=== PATIENT | female | born 1965 | race Caucasian/White ===

== ENCOUNTER 2024-02-17 08:30 | Outpatient (CLI) | payer OTHER, SELFPAY | END 2024-02-17 08:31 | disposition home or self-care (01) | PROVIDERS: PCP Family Medicine; Visit Provider Family Medicine | DX: Z00.00 Encounter for general adult medical examination without abnormal findings (principal); R53.83 Other fatigue; E05.00 Thyrotoxicosis with diffuse goiter without thyrotoxic crisis or storm; R00.2 Palpitations; Z13.6 Encounter for screening for cardiovascular disorders | CPT/HCPCS: 80053; 80061; 84439; 84443; 84445; 84481 ==

== ENCOUNTER 2024-05-17 07:53 | Outpatient (CLI) | payer OTHER, SELFPAY ==
--- NOTE | 2024-05-17 08:15 | CRLHL7_ITS ---
For Patients: As a result of the Century Cures Act, medical imaging exams and procedure reports are released immediately into your electronic medical record. You may view this report before your referring provider. If you have questions, please contact your health care provider. BILATERAL SCREENING MAMMOGRAM WITH COMPUTER-AIDED DETECTION AND TOMOSYNTHESIS TECHNIQUE: CC and MLO views were obtained. These mammographic images have been obtained using full-field digital technique. These mammographic images were interpreted with the benefit of computer-aided detection. Breast Tomosynthesis was used in this interpretation. COMPARISON FILM: 01/21/22. FINDINGS: There are scattered areas of fibroglandular density. IMPRESSION: There is no radiographic evidence for malignancy. ASSESSMENT: BI-RADS Category 1: Negative RECOMMENDATION: Routine screening mammogram in 1 year. A lay language report of this examination will be provided to the patient. Chacho Camacho M.D. Diagnostic/Nuclear Medicine Radiologist [email or web address] FAINA/yaneth SP/Dictated by: Chacho Camacho MD @ 06/02/2024 10:36:00 AM (Electronically Signed)
== END 2024-05-17 07:54 | disposition home or self-care (01) ==
LOC: MAMMO 07:54
PROVIDERS: PCP Family Medicine; Visit Provider Family Medicine
DX: Z12.31 Encounter for screening mammogram for malignant neoplasm of breast (principal)
CPT/HCPCS: 77063; 77067

== ENCOUNTER 2024-07-28 14:15 | Outpatient (RCR) | payer OTHER, SELFPAY | END 2024-08-03 15:52 | disposition home or self-care (01) | PROVIDERS: PCP Family Medicine; Visit Provider Family Medicine | DX: M54.16 Radiculopathy, lumbar region (principal); Z51.89 Encounter for other specified aftercare | CPT/HCPCS: 97110; 97140; 97161 ==

== ENCOUNTER 2024-09-12 06:17 | Outpatient (CLI) | payer OTHER, SELFPAY ==
--- OUTSIDE RECORDS SUMMARY | 2024-09-12 06:39 | XMS_ITS | Clinical Summary ---
Author Organization [facility] Address [place], [place] [address] Care Team Providers Care Platform Software Engineer Name Role Phone Juliette Gabriel MD Primary Care Provider + Allergies Active Allergy Reactions Criticality Noted Date Comments Sulfa (Sulfonamide Antibiotics) Hives,Rash 07/25 Medications Medication Sig Dispensed Refills Start Date End Date Status methIMAzole (TAPAZOLE) 5 mg tablet Take 5 mg by mouth once daily. 07/03/2024 Active gabapentin (NEURONTIN) 300 mg capsule TAKE 1 CAPSULE BY MOUTH EVERY DAY AT BEDTIME 06/29/2024 Active predniSONE (DELTASONE) 10 mg tabletIndications:L umbar radiculopathy,Work related injury Take 2 Tablets (20 mg) by mouth two times daily with meals for 3 days, THEN 3 Tablets (30 mg) once daily with a meal for 3 days, THEN 2 Tablets (20 mg) once daily with a meal for 3 days, THEN 1 Tablet (10 mg) once daily with a meal for 3 days. 30 Tablet 08/17/2024 08/28/2024 Active Problems No known active problems Encounters Date Type Department Care Team Description 09/08/2024 4:15 PM CDT Ancillary Procedure [facility] [address] [place] [address] Arrived 09/08/2024 Travel 09/06/2024 Telephone [facility] [address] [place] [address] Emiliano Wayne MD Prior Authorization (PRIOR AUTH SENT TO [facility]? ) 08/31/2024 Telephone [facility] [address] [place] [address] Emiliano Wayne MD Form (Health Care Provider Report) 08/24/2024 Telephone [facility] [address] [place] [address] Pcp, No Form (questions) 08/17/2024 1:40 PM CDT Office Visit [facility] [address] [place] [address] Emiliano Wayne MD [facility] Med (Consult work comp back pain date of injury:05/04/[address] 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 ) 08/17/2024 Travel from Last 3 Months Social History Tobacco Use Types Packs/Day Years Used Date Smoking Tobacco: Never Smokeless Tobacco: Never Tobacco Cessation:Counseling Given: Not Answered Sex and Gender Information Value Date Recorded Sex Assigned at Not on file Gender Identity Not on file Sexual Orientation Not on file Obstetrics History Last Filed Vital Signs Vital Sign Reading Time Taken Comments Blood Pressure 117/81 08/17/2024 1:50 PM CDT Pulse 88 08/17/2024 1:50 PM CDT Temperature 36.8 ??C (98.2 ??F) 08/17/2024 1:50 PM CD T Respiratory Rate - - Oxygen Saturation 99% 08/17/2024 1:50 PM CDT Inhaled Oxygen Concentration - - Weight 82.7 kg (182 lb 6.4 oz) 08/17/2024 1:50 P M CDT Height 162.6 cm (5' 4) 08/17/2024 1:50 PM CDT Body Mass Index 31.31 08/17/2024 1:50 PM CDT Plan of Treatment Health Maintenance Due Date Last Done Comments Tdap 1978 Depression screening for age 12+ 1979 HIV for age 15-65 1982 Hepatitis C screening for ag e 18-79 1985 Tetanus booster 1987 Colonoscopy through age 75 2012 Lipids for age 45-75 2012 Mammogram for age 45-75 2012 Zoster (shingles) series for age 50+ (1 of 2) 2017 COVID-19 vaccine series ( season) 2024 Influenza for age 50-64 07/24/2024 BMI (ht and wt on same day) for age 18+ 08/17/2025 08/17/2024 Pap test for age 21-65 03/03/2027 , 03/03/2024 Pneumococcal series for age 6-64 Aged Out No longer eligible b ased on patient's age to complete this topic Procedures Procedure Name Priority Date/Time Associated Diagnosis Comments MR SPINE LUMBAR WO Routine 09/08/2024 4: 14 PM CDT Lumbar radiculopathy Work related injury HPV HIGH RISK Routine 03/03/2024 7:55 AM CDT from Last 3 Months or Most Recently Relevant to Health Maintenance Results * MR SPINE LUMBAR WO (09/08/2024 4:14 PM CDT) Anatomical Region Laterality Modality Spine, LUMBAR SPINE Magnetic Res onance 09/09/2024 12:0 2 PM CDT Narrative 09/09/2024 12:02 PM CDT For Patients: ??As a result of the Century Cures Act, medical imaging exams and procedure reports are released immediately into your electronic medical record. ??You may view this report before your referring provider. ??If you have questions, please contact your health care provider. Indication: Lumbar radiculopathy. Work related injury. Low back pain. Technique: Multiplanar, multisequence, MRI of the lumbar spine, obtained without contrast. Comparison: No relevant comparison studies available at this institution. Findings: The lumbar lordosis is preserved. No significant spondylolisthesis. ??Vertebral body heights are grossly maintained. No evidence of acute fracture or focal compression deformity. Bone marrow signal appears within normal limits. The conus medullaris terminates at approximately L2. No suspicious findings in the prevertebral and paraspinal soft tissues. Included SI joints are unremarkable. T12-L1 through L2-L3: No neural foraminal or spinal canal stenosis. L3-L4: Minimal disc bulge, mild facet arthropathy. No neural foraminal or spinal canal stenosis. L4-L5: Mild facet arthropathy. No neural foraminal or spinal canal stenosis. L5-S1: Right asymmetric facet arthropathy. No neural foraminal or spinal canal stenosis. Impression: 1. Normal spinal alignment. No acute osseous abnormality. 2. Minor spondylosis. No neural foraminal or spinal canal stenosis. Dictated by Kiara oHffman MD @ 09/09/2024 12:02:54 PM (Electronically Signed) Procedure Note Kiara Hoffman, - 09/09/2024 For Patients: As a result of the Cures Act, medical imagingexams and procedure reports are released immediately into your electronicmedical record. You may view this report before your referring provider.If you have questions, please contact your health care provider. Indication: Lumbar radiculopathy. Work related injury. Low back pain. Technique: Multiplanar, multisequence, MRI of the lumbar spine, obtained withoutcontrast. Comparison: No relevant comparison studies available at this institution. Findings: The lumbar lordosis is preserved. No significant spondylolisthesis.Vertebral body heights are grossly maintained. No evidence of acutefracture or focal compression deformity. Bone marrow signal appears withinnormal limits. The conus medullaris terminates at approximately L2. Nosuspicious findings in the prevertebral and paraspinal soft tissues.Included SI joints are unremarkable. T12-L1 through L2-L3: No neural foraminal or spinal canal stenosis. L3-L4: Minimal disc bulge, mild facet arthropathy. No neural foraminal orspinal canal stenosis. L4-L5: Mild facet arthropathy. No neural foraminal or spinal canalstenosis. L5-S1: Right asymmetric facet arthropathy. No neural foraminal or spinalcanal stenosis. Impression: 1. Normal spinal alignment. No acute osseous abnormality. 2. Minor spondylosis. No neural foraminal or spinal canal stenosis. Dictated by Kiara Hoffman MD @ 09/09/2024 12:02:54 PM (Electronically Signed) Emiliano Wayne MD MR * HPV HIGH RISK (03/03/2024 7:55 AM CDT) TYPE 16 Negative Negative 03/07/2024 2:02 PM CDT [facility]OR[facility] TYPE 18 Negative Negative 03/07/2024 2:02 PM CDT [facility] TRAL LABORATORY OTHER HIGH RISK TYPES Negative Negative 03/07/2024 2:02 PM CDT [facility] TRA LABORAT[facility] Other (Cervical/Vagina l) 03/03/2024 7:55 AM CDT 03/03/2024 4:18 PM CDT Narrative [facility] - 03/07/2024 2:02 PM CDT HPV types 16, 18, 31, 33, 35, 39, 45, 51, 52, 56, 58, 59, 66 and 68 DNA were undetectable or below the pre-set threshold. Methodology: Narciso Sarah 4800 HPV Test Juliette Gabriel MD MICROBIOLOGY [facility] [address] [place] [address], from Last 3 Months or Most Recently Relevant to Health Maintenance Care Teams Platform Software Engineer Relationship Specialty Start Date End Date Juliette Gabriel MD [address] [place] [address] PCP - General Family Practice 06/30/24
--- NOTE | 2024-09-12 08:06 | W.ANESCHARGE ---
Anesthesia Charges Start Date/Time Anesthesia Start Date: 09/12/24 Anesthesia Start Time: 07:32 Stop Date/Time Anesthesia Stop Date: 09/12/24 Anesthesia Stop Time: 08:01
--- NOTE | 2024-09-12 09:39 | W.ANESCHARGE ---
Anesthesia Charges Start Date/Time Anesthesia Start Date: 09/12/24 Anesthesia Start Time: 07:32 Stop Date/Time Anesthesia Stop Date: 09/12/24 Anesthesia Stop Time: 08:01
== END 2024-09-12 06:18 | disposition home or self-care (01) ==
LOC: OP CLINIC 06:17
PROVIDERS: PCP Family Medicine; Visit Provider Surgery
DX: Z12.11 Encounter for screening for malignant neoplasm of colon (principal); K57.30 Diverticulosis of large intestine without perforation or abscess without bleeding; Z86.0100 Personal history of colon polyps, unspecified
CPT/HCPCS: 00812; 45378; J2704

== ENCOUNTER 2024-10-05 16:01 | Outpatient (CLI) | payer OTHER, SELFPAY ==
--- OUTSIDE RECORDS SUMMARY | 2024-10-05 16:03 | XMS_ITS | Clinical Summary ---
Author Organization [facility] Address [place], [place] [address] Care Team Providers Care Manager Express Name Role Phone Juliette Gabriel MD Primary Care Provider + Allergies Active Allergy Reactions Criticality Noted Date Comments Sulfa (Sulfonamide Antibiotics) Hives,Rash 07/25 Medications Medication Sig Dispensed Refills Start Date End Date Status methIMAzole (TAPAZOLE) 5 mg tablet Take 5 mg by mouth once daily. 07/03/2024 Active gabapentin (NEURONTIN) 300 mg capsule TAKE 1 CAPSULE BY MOUTH EVERY DAY AT BEDTIME 06/29/2024 Active Active Problems No known active problems Encounters Date Type Department Care Team Description 09/15/2024 Telephone [facility] [address] [place] [address] Emiliano Wayne MD Results (MRI 09/08/24/) 09/08/2024 4:15 PM CDT Ancillary Procedure [facility] [address] [place] [address] 09/08/2024 Travel 09/06/2024 Telephone [facility] [address] [place] [address] Emiliano Wayne MD Prior Authorization (PRIOR AUTH SENT TO [facility]? ) 08/31/[address] [address] Emiliano Wayne MD Form (Health Care Provider Report) 08/24/2024 Telephone [facility] [address] [place] [address] Pcp, No Form (questions) 08/17/2024 1:40 PM CDT Office Visit [facility] [address] [place] [address] Emiliano Wayne MD [facility] (Consult work comp back pain date [...] 08/17/2024 1:50 PM CDT Plan of Treatment Upcoming Encounters Date Type Department Care Team (Late st Contact Info) Description 11/01/2024 11:20 AM REGISTERED NURSE MATERNITY Office Visit [facility] [address] [facility] [place] [address] Emiliano Wayne MD [address] [place] [address] Health Maintenance Due Date Last Done Comments Tdap 1978 Depression screening for age 12+ 1979 HIV for age 15-65 1982 Hepatitis C screening for ag e 18-79 1985 Tetanus booster 1987 Colonoscopy through age 75 2012 Lipids for age 45-75 2012 Mammogram for age 45-75 2012 Zoster (shingles) series for age 50+ (1 of 2) 2017 COVID-19 vaccine series (2023- season) 2024 Influenza for age 50-64 07/24/2024 [...] For Patients: ??As a result of the Cures Act, medical imaging exams and procedure [...] foraminal or spinal canal stenosis. Dictated by Kiraa Hoffman MD @ 09/09/2024 12:02:54 PM (Electronically Signed) Emiliano Wayne MD MR * HPV HIGH RISK (03/03/2024 7:55 AM CDT) TYPE 16 Negative Negative 03/07/2024 2:02 PM CDT [facility] TRAL LABORATORY TYPE 18 Negative Negative 03/07/2024 2:02 PM CDT [facility] TRA LABORATORY OTHER HIGH RISK TYPES Negative Negative 03/07/2024 2:02 PM CDT [facility] TRA LABORATORY Other (Cervical/Vagina l) 03/03/2024 7:55 AM CDT 03/03/2024 4:18 PM CDT Narrative [facility] - 03/07/2024 2:02 PM CDT HPV types 16, 18, 31, 33, 35, 39, 45, 51, 52, 56, 58, 59, 66 and 68 DNA were undetectable or below the pre-set threshold. Methodology: Impraise Sarah 4800 HPV Test Juliette Gabriel MD MICROBIOLOGY [facility] [address] [place] [id number], from Last 3 Months or Most Recently Relevant to Health Maintenance Care Teams Manager Express Relationship Specialty Start Date End Date Juliette Gabriel MD [address] [place] [address] PCP - General Family Practice 06/30/24
--- NOTE | 2024-10-19 08:46 | W.PM.SLEEP ---
Sleep Study Details Details Interpreting Provider: Mik Date of Sleep Study: 10/05/24 Sleep Study Details: STUDY TYPE:? Home unattended BMI:? 31.4 ORDERING PROVIDER:Marysol Gabriel INDICATION:? Concern about sleep apnea ? SLEEP SUMMARY:? 361 minutes monitored RESPIRATORY SUMMARY:? AHI 22.3 Low oxygen 80 30.3% of study oxygen less than 90% Snoring 92% PERIODIC LIMB MOVEMENTS OF SLEEP:? Not recorded CARDIAC:? Range 64-105, mean 84.6 IMPRESSION:? Moderate obstructive sleep apnea with significant desaturation RECOMMENDATION: Treatment options include CPAP or dental appliance. Would favor CPAP. Follow-up oximetry should be performed once effective therapy is established.
== END 2024-10-05 16:02 | disposition home or self-care (01) ==
LOC: SLEEP 16:02
PROVIDERS: PCP Family Medicine; Visit Provider Family Medicine
DX: G47.33 Obstructive sleep apnea (adult) (pediatric) (principal)
CPT/HCPCS: 95806

== ENCOUNTER 2025-07-03 07:35 | Outpatient (CLI) | payer OTHER, SELFPAY | END 2025-07-03 07:36 | disposition home or self-care (01) | LOC: NFLDREF 07-06 15:47 | PROVIDERS: PCP Family Medicine; Referring Provider Family Medicine; Visit Provider Family Medicine | DX: E78.5 Hyperlipidemia, unspecified (principal); E05.90 Thyrotoxicosis, unspecified without thyrotoxic crisis or storm; R53.82 Chronic fatigue, unspecified | CPT/HCPCS: 80053; 80061; 84439; 84443 ==

== ENCOUNTER 2025-09-12 07:35 | Outpatient (CLI) | payer OTHER, SELFPAY ==
--- NOTE | 2025-09-12 07:45 | CRLHL7_ITS ---
For Patients: As a result of the Century Cures Act, medical imaging exams and procedure reports are released immediately into your electronic medical record. You may view this report before your referring provider. If you have questions, please contact your health care provider. INDICATION: Hyperthyroidism. TECHNIQUE: 285 microcuries I-123 administered orally on September 12, 2025. Uptake and scan performed 6 hours after administration of activity. FINDINGS: There is good uptake of activity by the thyroid gland. There is subtly more activity in the midleft thyroid lobe relative to the right. This is not convincingly a hot nodule. However correlation with a thyroid ultrasound is suggested. 6 hour thyroid uptake is 21.8 percent. IMPRESSION: 1. Uptake at 6 hours is 21.8 percent. 2. Questionable hyperfunctioning nodule in the mid left thyroid lobe. Correlation with thyroid ultrasound is recommended as a 1st step. Dictated by Chacho Camacho MD @ 09/12/2025 3:14:41 PM (Electronically Signed)
== END 2025-09-12 07:36 | disposition home or self-care (01) ==
LOC: NM 07:35
PROVIDERS: PCP Family Medicine; Visit Provider Specialist
DX: E05.90 Thyrotoxicosis, unspecified without thyrotoxic crisis or storm (principal)
CPT/HCPCS: 78014; A9509

== ENCOUNTER 2025-11-07 17:52 | Outpatient (CLI) | payer OTHER, SELFPAY ==
--- NOTE | 2025-11-07 18:20 | CRLHL7_ITS ---
For Patients: As a result of the Century Cures Act, medical imaging exams and procedure reports are released immediately into your electronic medical record. You may view this report before your referring provider. If you have questions, please contact your health care provider. INDICATION: BILATERAL SCREENING MAMMOGRAM, ASYMPTOMATIC 60 Y/O FEMALE COMPARISON: 05/17/2024, 01/21/2022 TECHNIQUE: Digital mammogram in CC and MLO projections including computer-aided detection (CAD) and tomosynthesis. BREAST COMPOSITION: There are scattered areas of fibroglandular density. FINDINGS: No suspicious findings. ASSESSMENT: BI-RADS 1 Negative RECOMMENDATION: Annual screening mammogram. A lay language report of this examination will be provided to the patient. Dictated by: Butch Gant MD @ 11/08/2025 11:08:05 (Electronically Signed)
== END 2025-11-07 17:53 | disposition home or self-care (01) ==
LOC: MAMMO 17:52
PROVIDERS: PCP Family Medicine; Visit Provider Family Medicine
DX: Z12.31 Encounter for screening mammogram for malignant neoplasm of breast (principal)
CPT/HCPCS: 77063; 77067